=== PATIENT | female | born 1990 | race Caucasian/White ===

== ENCOUNTER 2018-05-11 15:29 | Emergency (ER) | payer OTHER ==
[2018-05-11 15:35] VITALS: BP 133/66
[2018-05-11] MEDS ORDERED: IBUPROFEN 800 MG TABLET PO ONE (16:03)
--- NOTE | 2018-05-11 16:03 | RADIOLOGY REPORT (SQ) ---
EXAM DESCRIPTION: FOOT LEFT COMPLETE COMPLETED DATE/TIME: 05/11/2018 3:54 pm REASON FOR STUDY: foot pain COMPARISON: None. NUMBER OF VIEWS: Three views. TECHNIQUE: AP, lateral and oblique radiographic images acquired of the left foot. LIMITATIONS: None. FINDINGS: MINERALIZATION: Normal. BONES: No acute fracture or dislocation. Plantar calcaneal spur. No worrisome bone lesions. JOINTS: No effusions. SOFT TISSUES: No soft tissue swelling. No foreign body. OTHER: No other significant finding. IMPRESSION: NEGATIVE STUDY OF THE LEFT FOOT. NO RADIOGRAPHIC EVIDENCE OF ACUTE INJURY. TECHNICAL DOCUMENTATION: JOB ID: [id number] [employer]- All Rights Reserved Reading location - IP/workstation name: [email or web address]
--- NOTE | 2018-05-11 16:08 | ER Document Report ---
HPI - HPI Patient complains to provider of: Toe injury Time Seen by Provider: 05/11/18 15:40 Onset: Other - 2 weeks ago Onset/Duration: Persistent Quality of pain: Achy Pain Level: 4 Context: Patient states she was attempting a back flip on a trampoline injuring her left second toe that occurred 2 weeks ago. Patient complains of continued swelling and bruising to the toe. Associated Symptoms: Other - Left second toe injury Exacerbated by: Standing, Movement, Walking Relieved by: Denies Similar symptoms previously: No Recently seen / treated by doctor: No - ROS ROS below otherwise negative: Yes Systems Reviewed and Negative: Yes All other systems reviewed and negative - REPRODUCTIVE Reproductive: DENIES: : - MUSCULOSKELETAL Musculoskeletal: REPORTS: Extremity pain - L 2nd toe, Swelling - DERM Skin Color: Ecchymosis Skin Problems: None Past Medical History - General Information source: Patient - Social History Smoking Status: Never Smoker Chew tobacco use (# tins/day): No Frequency of alcohol use: Occasional Drug Abuse: None Occupation: Environmental health Family History: Reviewed & Not Pertinent Patient has suicidal ideation: No Patient has homicidal ideation: No - Medical History Medical History: Other - Anemia Renal/ Medical History: Denies: Hx Peritoneal Dialysis Past Surgical History: Reports: Hx Tonsillectomy, Other - Tympanic membrane Vertical Provider Document - CONSTITUTIONAL Agree With Documented VS: Yes Exam Limitations: No Limitations General Appearance: WD/WN, No Apparent Distress - INFECTION CONTROL TRAVEL OUTSIDE OF THE [place] IN LAST 30 DAYS: No - HEENT HEENT: Atraumatic, Normocephalic - NECK Neck: Normal Inspection - RESPIRATORY Respiratory: No Respiratory Distress - CARDIOVASCULAR Pulses: Normal: Dorsalis pedis - BACK Back: Normal Inspection - MUSCULOSKELETAL/EXTREMETIES Musculoskeletal/Extremeties: MAEW, FROM, Tender - Tenderness to left second toe distal phalanx with edema and ecchymosis, Edema, Eccymosis - NEURO Level of Consciousness: Awake, Alert, Appropriate Motor/Sensory: No Motor Deficit - DERM Integumentary: Warm, Dry Course - Vital Signs Vital signs: Temp Pulse Resp BP Pulse Ox 97.4 F 103 H 20 133/66 H 100 05/11/18 15:34 05/11/18 15:34 05/11/18 15:34 05/11/18 15:34 05/11/18 15:34 - Diagnostic Test Radiology reviewed: Pending, Image reviewed Procedures - Immobilization Left Toe 2nd digit Pre-Proc Neuro Vasc Exam: Normal Immobilizer type: Post-op shoe Performed by: PCT Post-Proc Neuro Vasc Exam: Normal Alignment checked and good: Yes Discharge - Discharge Clinical Impression: Toe fracture, left Qualifiers: Encounter type: initial encounter Toe: lesser toe Fracture type: closed Phalanx: distal Fracture alignment: nondisplaced Qualified Code(s): S92.535A - Nondisplaced fracture of distal phalanx of left lesser toe(s), initial encounter for closed fracture Condition: Stable Disposition: HOME, SELF-CARE Instructions: Bryan Taping (toes) ([facility]), Post-Op Shoe ([facility]), Fractured Toe ([facility]) Additional Instructions: Return immediately for any new or worsening symptoms Followup with your primary care provider, call tomorrow to make a followup appointment Follow-up with orthopedics for further evaluation, call tomorrow for an appointment Prescriptions: Naproxen [Naprosyn 250 Nmg Tablet] 1 tab PO BID #14 tablet Forms: Return to Work Referrals: [facility] [Provider Group] - Follow up as needed
== END 2018-05-11 16:46 | disposition home or self-care (01) ==
LOC: ER 15:29
DX: S92.535A Nondisplaced fracture of distal phalanx of left lesser toe(s), initial encounter for closed fracture (principal); M79.89 Other specified soft tissue disorders; X58.XXXA Exposure to other specified factors, initial encounter; Y93.44 Activity, trampolining
CPT/HCPCS: 99283

== ENCOUNTER 2019-09-08 22:20 | Emergency (ER) | payer OTHER ==
[2019-09-09] MEDS ORDERED: KETOROLAC TROMETHAMINE 60 MG/2 ML SDV IM ONE (01:19)
--- NOTE | 2019-09-09 01:25 | ER Document Report ---
ED Extremity Problem, Upper - General Chief Complaint: Arm Pain Stated Complaint: LEFT ARM LUMP Time Seen by Provider: 09/09/19 00:57 Primary Care Provider: SACHI LEPE MD [Primary Care Provider] - Follow up as needed Notes: Patient is a 28-year-old female that comes to the emergency department for chief complaint of a painful slightly swollen area in the left forearm. She states that area started turning purplish/reddish as well. She states that she was seen by orthopedics in the morning, she states she was performing a lot of testing including elevating her hands/arms, pinching the arms/wrists, and she was being evaluated for carpal tunnel. She states that she had some tingling and discomfort later but she did not develop the swelling noticeably until the afternoons last evening. She denies any other injury, denies numbness, denies wounds, denies any other complaints. She denies any other area of pain. She is not on a blood thinner or any daily medications. She denies . She sta vito she had a negative x-ray of the upper extremity earlier today. TRAVEL OUTSIDE OF THE [place] IN LAST 30 DAYS: No - Related Data Allergies/Adverse Reactions: No Known Allergies Allergy (Verified 09/08/19 22:53) Home Medications: CONTROL Past Medical History - General Information source: Patient - Social History Smoking Status: Never Smoker Frequency of alcohol use: Social Drug Abuse: None Lives with: Family Family History: Reviewed & Not Pertinent Patient has homicidal ideation: No Renal/ Medical History: Denies: Hx Peritoneal Dialysis Past Surgical History: Reports: Hx Tonsillectomy, Other - Tympanic membrane - Immunizations Immunizations up to date: Yes Hx Diphtheria, Pertussis, Tetanus Vaccination: Yes Review of Systems - Review of Systems Constitutional: No symptoms reported EENT: No symptoms reported Cardiovascular: No symptoms reported Respiratory: No symptoms reported Gastrointestinal: No symptoms reported Genitourinary: No symptoms reported Female Genitourinary: No symptoms reported Musculoskeletal: See HPI Skin: See HPI Hematologic/Lymphatic: No symptoms reported Neurological/Psychological: No symptoms reported Physical Exam - Vital signs Vitals: Temp Pulse Resp BP Pulse Ox 98.2 F 85 16 131/81 H 100 09/08/19 22:42 09/08/19 22:42 09/08/19 22:42 09/08/19 22:42 09/08/19 22:42 - Notes Notes: GENERAL: Alert, interacts well. No acute distress. HEAD: Normocephalic, atraumatic. EYES: Pupils equal, round, and reactive to light. Extraocular movements intact. ENT: Oral mucosa moist, tongue midline. Oropharynx unremarkable. Airway patent. LUNGS: Clear to auscultation bilaterally, no wheezes, rales, or rhonchi. No respiratory distress. Non-tender chest wall. HEART: Regular rate and rhythm. No murmur ABDOMEN: Soft, non-tender. Non-distended. EXTREMITIES: There is an area over the radial aspect of the mid left forearm where there is some slight almost circular soft tissue swelling right at a vein. The area is slightly tender, slightly discolored with erythema but no overt erythema noted. No abnormal heat, induration, fluctuance. Area appears slightly mobile and appears to be the vein. There is no edema proximal or distal to the area. Normal distal pulses, sensation, capillary refill. Normal finger, wrist, elbow range of motion. No wounds noted. BACK: no cervical, thoracic, lumbar midline tenderness. No saddle anesthesia, normal distal neurovascular exam. Moves all extremities in full range of motion. NEUROLOGICAL: Alert and oriented x3. Normal speech. Cranial nerves II through XII grossly intact. Strength 5/5 in all extremities. PSYCH: Normal affect, normal mood. SKIN: Warm, dry, normal turgor. No rashes or lesions noted. Course - Re-evaluation Re-evalutation: Area in question appears to be developing phlebitis without signs of infection. No noted abscess, necrotizing fasciitis, or edema suggesting a blood clot. Patient has no concerning reported history including denying IV drug abuse, denying smoking, and she is not on hormone therapy. Patient also had repetitive movements and pinching earlier today which could be contributing to this. Clinical suspicion is highest for phlebitis without infection. Patient given Toradol, recommended to ice, rest, take anti-inflammatories, discussed ultrasound if this continues or worsens, discussed return cautions in detail. Patient states appreciation and agreement. I did offer to perform laboratory work-up and EKG to evaluate her dizziness and near syncope when she noticed the area, however she states she felt like this was a stress response, she did perform orthostatic vital signs which were normal, patient declined. I feel this is appropriate, patient will return if she passes out again or develops any other concerning symptoms including shortness of breath or chest pain. Patient asymptomatic and stable at time of discharge. - Vital Signs Vital signs: Temp Pulse Resp BP Pulse Ox 98.2 F 69 16 136/88 H 100 09/08/19 22:53 09/09/19 01:34 09/08/19 22:42 09/09/19 01:34 09/08/19 22:42 Discharge - Discharge Clinical Impression: Left forearm pain Condition: Stable Disposition: HOME, SELF-CARE Additional Instructions: The evaluation tonight is most consistent with phlebitis, a superficial inflamed vein. I recommend ice to the area 3-4 times a day, rest, the anti-inflammatory as prescribed. Symptoms should simply resolve. Follow-up with primary care. If swelling worsens return or proceed with the ultrasound to look for clot, if there is a clot with the test you will be referred back to the emergency department. Return if the area becomes severely tender, has spreading redness, you develop a fever, or any other concerning or worsening symptoms. Prescriptions: Naproxen 500 mg PO BID PRN #20 tablet PRN Reason: Forms: Return to Work, Follow-Up Outpatient Testing Referrals: SACHI LEPE MD [Primary Care Provider] - Follow up as needed
[2019-09-09 01:35] VITALS: BP 136/88
== END 2019-09-09 01:49 | disposition home or self-care (01) ==
LOC: ER 22:20
DX: M79.632 Pain in left forearm (principal); M79.89 Other specified soft tissue disorders; L53.9 Erythematous condition, unspecified; R20.2 Paresthesia of skin; Z79.3 Long term (current) use of hormonal contraceptives
CPT/HCPCS: 99283; 96372; J1885

== ENCOUNTER 2019-12-17 03:23 | Emergency (ER) | payer OTHER ==
[2019-12-17 04:21] VITALS: BP 137/83
[2019-12-17] MEDS ORDERED: NORMAL SALINE 1000 ML 1,000 ML IV ONE (05:00)
--- NOTE | 2019-12-17 05:02 | ER Document Report ---
ED General - General Chief Complaint: Shortness Of Breath Stated Complaint: SHORT OF BREATH//COVID POSITIVE Time Seen by Provider: 12/17/19 04:28 Notes: Patient is a 29-year-old female who comes emergency department for chief complaint of cough, shortness of breath, body aches, fevers, congestion, nausea. She started having symptoms 6 days ago, she was tested and tested positive for COVID-19. She states that she has been medicating with [id number] medications and felt like she was doing well but over the past half days she developed a worsening cough, more shortness of breath, occasional dizziness, and became concerned. She denies specific chest pain. She states the cough is almost constant since last night and she cannot stop coughing. She smokes, denies alcohol or recreational drugs. She is on control, has a history of ADHD and is treated for this, denies medical history otherwise. TRAVEL OUTSIDE OF THE [place] IN LAST 30 DAYS: No - Related Data Allergies/Adverse Reactions: No Known Allergies Allergy (Verified 09/08/19 22:53) Past Medical History - General Information source: Patient - Social History Smoking Status: Never Smoker Frequency of alcohol use: None Drug Abuse: None Lives with: Family Family History: Reviewed & Not Pertinent Patient has homicidal ideation: No Renal/ Medical History: Denies: Hx Peritoneal Dialysis Past Surgical History: Reports: Hx Tonsillectomy, Other - Tympanic membrane - Immunizations Immunizations up to date: Yes Hx Diphtheria, Pertussis, Tetanus Vaccination: Yes Review of Systems - Review of Systems Constitutional: See HPI EENT: See HPI Cardiovascular: No symptoms reported Respiratory: See HPI Gastrointestinal: No symptoms reported Genitourinary: No symptoms reported Female Genitourinary: No symptoms reported Musculoskeletal: No symptoms reported Skin: No symptoms reported Hematologic/Lymphatic: No symptoms reported Neurological/Psychological: No symptoms reported Physical Exam - Vital signs Vitals: Temp Pulse Resp BP Pulse Ox 98.5 F 83 16 137/83 H 100 12/17/19 04:18 12/17/19 04:18 12/17/19 04:18 12/17/19 04:18 12/17/19 04:18 - Notes Notes: GENERAL: Alert, interacts well. Patient persistently coughing but is otherwise well-appearing HEAD: Normocephalic, atraumatic. EYES: Pupils equal, round, and reactive to light. Extraocular movements intact. ENT: Oral mucosa moist, tongue midline. Oropharynx unremarkable. Tonsils are absent. Airway patent. NECK: Full range of motion. Supple. Trachea midline. No lymphadenopathy. No nuchal rigidity. LUNGS: Clear to auscultation bilaterally, no wheezes, rales, or rhonchi. Persistent cough but no labored breathing or tachypnea HEART: Regular rate and rhythm. No murmur ABDOMEN: Soft, non-tender. Non-distended. EXTREMITIES: Moves all 4 extremities spontaneously. No edema, normal radial and dorsalis pedis pulses bilaterally. No cyanosis. BACK: no cervical, thoracic, lumbar midline tenderness. No saddle anesthesia, normal distal neurovascular exam. Moves all extremities in full range of motion. NEUROLOGICAL: Alert and oriented x3. Normal speech. Cranial nerves II through XII grossly intact. Strength 5/5 in all extremities. PSYCH: Normal affect, normal mood. SKIN: Warm, dry, normal turgor. No rashes or lesions noted. Course - Re-evaluation Re-evalutation: Patient with persistent coughing on my exam but she has no wheezing, tachypnea, hypoxia, or respiratory distress. She is already known to be positive for COVID-19 from outpatient testing. Vital signs unremarkable including no fever. CBC shows mild leukopenia, mild thrombocytopenia, this is expected with her diagnosis. Remaining work-up unremarkable. Chest x-ray does show patchy bilateral infiltrates suggesting viral pneumonia. I suspect patient has COVID- 19 pneumonia. However on reevaluation patient is doing very well, she is talkative, she states she wanted to be checked out but she is ready to go home. I ambulated the patient and she did excellently, she had no respiratory distress, oxygen saturation was 100% without any decline, she had no tachycardia. Discussed options with patient. Blood cultures have been drawn, she will be treated with antibiotics for the pneumonia regardless, she was given dexamethasone here, she will be provided with symptom management at home. Discussed strict return precautions in detail. Patient states appreciation and agreement. Stable and well-appearing at time of discharge. - Vital Signs Vital signs: Temp Pulse Resp BP Pulse Ox 98.9 F 78 16 137/83 H 100 12/17/19 07:54 12/17/19 07:54 12/17/19 07:54 12/17/19 04:18 12/17/19 07:54 - Laboratory Result Diagrams: 12/17/19 06:04 12/17/19 06:04 Laboratory results interpreted by me: 12/17/19 12/17/19 12/17/19 06:04 06:04 06:04 WBC 3.1 L Plt Count 130 L Sodium 134.7 L Carbon Dioxide 31 H BUN 6 L Urine Protein 30 H Urine Ascorbic Acid 40 H Discharge - Discharge Clinical Impression: Pneumonia due to COVID-19 virus, Cough, Shortness of breath, Sinus congestion Condition: Stable Disposition: HOME, SELF-CARE Additional Instructions: Your work-up does indicate developing pneumonia but no other concerning findings. You have been treated with Decadron, started on azithromycin, drink plenty of fluids and rest. This is viral and should still resolve with time, however if you develop worsening difficulty breathing, spiking fevers, chest pain, or any other worsening symptoms return to the emergency department for additional treatment. Prescriptions: Hydrocodone Bit/Homatropine [Hycodan Syrup 5-1.5 mg/5 ml Ud Cup] 5 ml PO Q4HP PRN #120 ml PRN Reason: Azithromycin [Zithromax 250 mg Tablet] 250 mg PO ASDIR PRN #4 tablet PRN Reason: Forms: Return to Work
--- NOTE | 2019-12-17 05:51 | RADIOLOGY REPORT (SQ) ---
EXAM DESCRIPTION: XR CHEST 1 VIEW COMPLETED DATE/TME: 12/17/2019 05:00 CLINICAL HISTORY: +COVID, cough, short of breath COMPARISON: None. FINDINGS: Single frontal radiograph view of the chest. Cardiomediastinal silhouette: Normal size and contour. Lungs: Patchy bibasilar airspace opacities. No pneumothorax or large effusion. Bones: No acute osseous abnormality. Upper abdomen: No abnormality identified. IMPRESSION: 1. Patchy bibasilar airspace opacities compatible with bilateral pneumonic process. Viral pneumonia could produce this appearance.
[2019-12-17 06:28] LABS: ABSOLUTE LYMPHOCYTES (AUTO) 0.8 10^3/uL (0.5-4.7); ABSOLUTE MONOCYTES (AUTO) 0.2 10^3/uL (0.1-1.4); BASOPHILS % (AUTO) 0.4 % (0-2); EOSINOPHILS % (AUTO) 1.1 % (0-6); HEMATOCRIT 40.7 % (36.0-47.0); HEMOGLOBIN 13.6 g/dL (12.0-15.5); LYMPHOCYTES % (AUTO) 26.7 % (13-45); MEAN CORPUSCULAR HEMOGLOBIN 29.5 pg (27.0-33.4); MEAN CORPUSCULAR HGB CONC 33.5 g/dL (32.0-36.0); MEAN CORPUSCULAR VOLUME 88 fl (80-97); PLATELET COUNT 130 10^3/uL (150-450); RED BLOOD COUNT 4.63 10^6/uL (3.72-5.28); RED CELL DISTRIBUTION WIDTH 12.7 % (11.5-14.0); SEGMENTED NEUTROPHILS % (AUTO) 64.8 % (42-78); TOTAL CELLS COUNTED % (AUTO) 100 %; WHITE BLOOD COUNT 3.1 10^3/uL (4.0-10.5)
[2019-12-17 06:40] LABS: ALBUMIN 3.9 g/dL (3.5-5.0); ALKALINE PHOSPHATASE 65 U/L (38-126); ANION GAP 5 (5-19); ASPARTATE AMINO TRANSFERASE 34 U/L (14-36); BILIRUBIN,DIRECT 0.2 mg/dL (0.0-0.4); BILIRUBIN,TOTAL 0.4 mg/dL (0.2-1.3); BLOOD UREA NITROGEN 6 mg/dL (7-20); CALCIUM 8.8 mg/dL (8.4-10.2); CARBON DIOXIDE 31 mmol/L (22-30); CHLORIDE 99 mmol/L (98-107); GLUCOSE 95 mg/dL (75-110); POTASSIUM 4.5 mmol/L (3.6-5.0)
[2019-12-17 06:50] LABS: APPEARANCE,URINE SLIGHTLY-CLOUDY; BILIRUBIN,URINE NEGATIVE (NEGATIVE); COLOR,URINE AMBER; GLUCOSE, URINE NEGATIVE (NEGATIVE); KETONES,URINE NEGATIVE (NEGATIVE); LEUKOCYTE ESTERASE,URINE NEGATIVE (NEGATIVE); NITRITE,URINE NEGATIVE (NEGATIVE); PROTEIN,URINE 30 mg/dL (NEGATIVE); URINE SPECIFIC GRAVITY 1.029; UROBILINOGEN,URINE NEGATIVE mg/dL (<2.0)
[2019-12-17] MEDS ORDERED: AZITHROMYCIN 250 MG TABLET PO ONE (06:55)
[2019-12-17] MEDS ORDERED: DEXAMETHASONE SOD PHOS INJ 10 MG/1 ML VIAL IV ONE (06:55)
[2019-12-17] MEDS ORDERED: DEXAMETHASONE SOD PHOSPHATE INJ 4 MG/1 ML VIAL ONE (06:58)
== END 2019-12-17 07:54 | disposition home or self-care (01) ==
LOC: ER 03:23
DX: U07.1 COVID-19 (principal); J12.89 Other viral pneumonia; R05 Cough; R06.02 Shortness of breath; R09.81 Nasal congestion; M79.10 Myalgia, unspecified site; R50.9 Fever, unspecified; R11.0 Nausea; R42 Dizziness and giddiness; D72.819 Decreased white blood cell count, unspecified; D69.6 Thrombocytopenia, unspecified
CPT/HCPCS: 99284; 96361; 96374; 36415; 87040; 84703; 85025; 80053; 81001; 71045; J7030; J1100